=== PATIENT | female | born 1985 | race Caucasian/White ===

== ENCOUNTER 2017-10-22 06:02 | Inpatient (IN) ==
[2017-10-22] MEDS ORDERED: CeFAZolin Pre 2,000 MG/100 ML 2,000 MG/100 ML BAG IVPB ONE (06:07)
[2017-10-22] MEDS ORDERED: Naloxone 0.4 MG/ML INJ IVP PRN (06:07)
[2017-10-22] MEDS ORDERED: Metoclopramide 10 MG/2 ML VIAL IVP PRN ×2 (06:07→12:33)
[2017-10-22] MEDS ORDERED: Famotidine 20 MG/2 ML VIAL IVP PRN (06:07)
[2017-10-22] MEDS ORDERED: Ringers Solution, Lactated 1,000 ML IVC SCH (06:15)
--- NOTE | 2017-10-22 07:41 | History & Physical Report ---
Date of Encounter: 10/22/17 Time of Encounter: 07:40 24 Hour HP Update - Instructions Instructions: If the History and Physical is less than 30 days old and was completed prior to A.M. admission and or procedure and has NOT been updated on calendar day of procedure please complete this update prior to performing procedure. - Update Patient reports changes in Medical Condition: No Changes in examination, assessment, or condition: No Changes in Medication: No Preop tests/diagnostics Reviewed: Yes Surgery Remains Indicated: Yes Consent for Planned Operative Procedure(s) Verified: Yes - Pre-Operative Checklist Preoperative Checklist Indicated: Yes Prophylactic Antibiotic Ordered: Yes Home Medications Include Beta Saad: No Is VTE Prophylaxis Indicated?: Yes
[2017-10-22 08:02] LABS: Amphetamine Screen,Urine Negative ng/mL (Cutoff=1000); Barbiturate Screen,Urine Negative ng/mL (Cutoff=200); Benzodiazepines Screen,Urine Negative ng/mL (Cutoff=200); Cannabinoid Screen,Urine Negative ng/mL (Cutoff = 50); Cocaine Screen,Urine Negative ng/mL (Cutoff= 300); Opiate Screen,Urine Negative ng/mL (Cutoff=300); Phencyclidine Screen,Urine Negative ng/mL (Cutoff=25)
[2017-10-22 08:26] LABS: Hematocrit 31.9 % (35.3-44.9); Hemoglobin 10.7 g/dL (11.5-15.4); Mean Corpuscular HGB Conc 33.5 g/dL (31.6-35.5); Mean Corpuscular Volume 92.5 fL (83.0-100.0); Mean Platelet Volume 10.4 fL (9.4-12.4); Platelet Count 455 K/mcL (140-400); Red Blood Count 3.45 M/mcL (3.82-4.97); Red Cell Distribution Width 13.4 % (11.5-14.5)
[2017-10-22 08:28] LABS: Lymphocytes # 4.9 K/mcL (0.6-4.6); Monocytes # 0.8 K/mcL (0.0-1.3); Neutrophils # 7.9 K/mcL (1.6-8.9)
[2017-10-22 08:30] LABS: Polychromasia 1+ (Not Present)
--- NOTE | 2017-10-22 09:17 | Anesthesia Evaluation PreOp ---
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) Anesthesia History: No Prior Anesthetic Complications : Yes Test: Positive Alcohol Use: none Drug use: none Medications and Allergies 3 Allergy/AdvReac Type Severity Reaction Status Date / Time No Known Allergies Allergy Verified 10/22/17 07:02 - Meds/Allergy Pre-op Review Medications Reviewed: Yes Allergies Reviewed: Yes Beta Blockers on Current Med List: No Anesthesia Results - Labs 10/22/17 06:50 Anesthesia Exam - HEENT Pupil (Motor): Pupils equal Mallampati: II Teeth: Poor dentition Oral Opening: Greater than 3 - QM NURSE LOC: Oriented QM NURSE Motor: Normal RUE, Normal LUE, Normal RLE, Normal LLE, Normal Face QM NURSE Sensory: Normal: RUE, LUE, RLE, LLE, Face - Cardiac Rhythm: Regular Murmur: None JVD: No Carotid Bruit: No - Pulmonary Breath Sounds: bilateral Clear Respiratory Effort: Symmetrical Anesthesia Assess/Plan ASA Score: 2 Modified John Scale for Level of Consciousness: Cooperative, oriented, and tranquil Anesthetic Plan: Regional Autologous Blood: No Monitoring Plan: Standard Monitors Recovery Plan: PACU
--- NOTE | 2017-10-22 09:21 | Anesthesia Procedures ---
Date of Encounter: 10/22/17 Time of Encounter: 08:30 Procedures: Anesthesia - Epidural/Spinal Patient ID/Chart reviewed: Yes Patient examined: Yes OB Eval: Gestational age: 39 OB Eval: : 2 OB Eval: Hx Para: 1 OB Eval: Contractions: Non-stressed pattern Consent Obtained: Yes Supplemental Oxygen: None/Room Air Site Prep: Aseptic Technique, Sterile prep and drape, Povidone-Iodine 1% Patient position: upright Amount of Local Anesthetic used: 3 Interspace Used: L4-L5 Loss of Resistance (DOM): No Blood: No CSF: Yes Paresthesia: Yes Vitals + FHT's: stable throughout see nursing notes. bupivicaine 0.5% 2ml fentanyl 20 mcg, duramorph 0.3mg SAB
[2017-10-22] MEDS ORDERED: Ondansetron 4 MG/2 ML VIAL IVP ONE (09:23)
[2017-10-22] MEDS ORDERED: Ibuprofen 400 MG TABLET PO PRN (09:23)
[2017-10-22] MEDS ORDERED: *HR* HYDROcodone/Acet 5/325 mg TABLET PO PRN (09:23)
[2017-10-22] MEDS ORDERED: *HR* OxyCODONE/APAP 5/325 TABLET PO PRN (09:23)
[2017-10-22] MEDS ORDERED: Acetaminophen IV 1,000 MG/100 ML INFUS..BTL IVPB ONE (09:23)
[2017-10-22] MEDS ORDERED: *HR* Oxytocin 10 UNIT/ML VIAL IM ONE (09:42)
[2017-10-22] MEDS ORDERED: EPHEDrine 50 MG/ML VIAL ONE (09:42)
[2017-10-22] MEDS ORDERED: Ringers Solution, Lactated 1,000 ML ONE ×2 (09:42→15:50)
[2017-10-22] MEDS ORDERED: Lidocaine -MPF 1% 5 ML AMPUL ONE (09:42)
[2017-10-22] MEDS ORDERED: *HR* Phenylephrine 10 MG/ML VIAL ONE (09:42)
[2017-10-22] MEDS ORDERED: *HR* FentaNYL (PF) 100 MCG/2 ML VIAL ONE (09:42)
[2017-10-22] MEDS ORDERED: Morphine Sulfate/PF 5mg/10mL Vial ONE (09:42)
--- NOTE | 2017-10-22 09:57 | OB/GYN Procedure Note ---
Section - Date of procedure: 10/22/17 Preop diagnosis: desires repeat , desires sterilization Post-op diagnosis: same Procedure: repeat low transverse, bilateral tubal ligation Surgeon: Brie Joy Estimated blood loss (cc): 500 Was there an assistant district attorney present: No Anesthesiologist: Tatianna Rollins Senior Project Controls Specialist: Omaira Rodriguez Anesthesia Type: Spinal section complications: none Disposition: L&D Recovery Room Specimens: Placenta, Cord blood, Right tube segment, Left tube segment - (s) Infant A Infant Delivery Date: 10/22/17 Infant Delivery Time: 09:06 Presentation: vertex Position: KARINE Route of delivery: other Viability: Viable Pounds: 7 Ounces: 12 Gram Weight: 3515 kg at 1 minute: 8 at 5 minutes: 9 Placenta: complete extraction Cord: 3 umbilical vessels - Narrative Narrative: Patient was taken to the operating room and placed in supine position with left uterine displacement following the administration of spinal anesthetic. Skin was then prepped and draped in usual sterile fashion, and a timeout procedure was performed. A Pfannenstiel incision was performed through the previous surgical scar, and extended down to the fascial layer until the abdominal cavity was entered. A bladder flap was then gently created with sharp dissection. A low transverse uterine incision was performed and extended bilaterally with bandage scissors. The membranes were then ruptured with clear fluid present. A viable female infant was delivered from a vertex presentation with scores of 8 and 9 at 1 and 5 minutes respectively and the weighed 7 pounds and 12 ounces. The cord was clamped and cut, and the infant was handed to the nursery team. A sample of cord blood was obtained and the placenta was manually removed. The uterine cavity was wiped clean with wet lap sponge. The uterine incision was closed in a layered fashion with 0 Vicryl suture in a running locking fashion. Good hemostasis was noted.The patient and her were then asked if they still wanted to proceed with a tubal sterilization and they agreed. The left fallopian tube was first identified grasped and traced distally until the fimbriated end was seen and a distal portion tube was doubly ligated with 0 plain suture to incorporate the fimbriated end and the specimen was removed. Good hemostasis was noted and the procedure was repeated in a similar fashion for the right fallopian tube. Again good hemostasis was present. The Paracolic gutters were then gently wiped clean with wet lap sponge. Inspection was then performed with good hemostasis still noted. The fascial layer was closed with 0 PDS Stratafix suture in a running nonlocking fashion. The subcutaneous layer was irrigated with sterile water and then closed with 4-0 Vicryl suture in a running nonlocking fashion, and continuing to close the skin in a running subcuticular fashion. A piece of Dermabond mesh was then applied over the incision site. Patient tolerated procedure well, all sponge needle and instrument counts reported as correct. Estimated blood loss was 500 mL. The urine in the Rosales catheter was clear and yellow, and she was taken to recovery room in stable condition.
[2017-10-22] MEDS ORDERED: Measles/Mumps/Rubella Vacc 0.5 ML VIAL SQ ONE (12:33)
[2017-10-22] MEDS ORDERED: Oxytocin 20 units/ LR 1000 mL 20 UNIT/1,000 ML BAG IVC SCH (12:33)
[2017-10-22] MEDS ORDERED: Ondansetron 4 MG/2 ML VIAL IVP PRN (12:33)
[2017-10-22] MEDS ORDERED: Sennosides 8.6 MG TABLET PO PRN (12:33)
[2017-10-22] MEDS ORDERED: Simethicone 80 MG TAB.CHEW PO PRN (12:33)
[2017-10-22] MEDS: Ibuprofen 600 MG TABLET PO PRN ×2 (16:06→21:51)
[2017-10-22] MEDS: *HR* OxyCODONE/APAP 5/325 TABLET PO PRN (21:51)
[2017-10-23] MEDS: *HR* OxyCODONE/APAP 5/325 TABLET PO PRN ×4 (03:02→22:18)
[2017-10-23 04:52] LABS: Basophils % 0.2 %; Eosinophils # 0.1 K/mcL (0.0-0.6); Eosinophils % 0.5 %; Hematocrit 28.3 % (35.3-44.9); Hemoglobin 9.2 g/dL (11.5-15.4); Immature Granulocytes % 0.4 % (0-4); Lymphocytes % 23.3 %; Mean Corpuscular HGB Conc 32.5 g/dL (31.6-35.5); Mean Corpuscular Volume 92.2 fL (83.0-100.0); Mean Platelet Volume 9.6 fL (9.4-12.4); Monocytes # 1.1 K/mcL (0.0-1.3); Monocytes % 6.5 %; Neutrophils # 11.8 K/mcL (1.6-8.9); Platelet Count 410 K/mcL (140-400); Red Blood Count 3.07 M/mcL (3.82-4.97); Red Cell Distribution Width 13.2 % (11.5-14.5); Segmented Neutrophils % 69.1 %
[2017-10-23] MEDS: *HR* Enoxaparin 40 MG/0.4 ML SYRINGE SQ SCH (08:21)
[2017-10-23] MEDS: Prenatal Vit/FA 1 EACH TABLET PO SCH (08:22)
[2017-10-23] MEDS: Ibuprofen 600 MG TABLET PO PRN ×3 (08:22→22:19)
--- NOTE | 2017-10-23 10:36 | OB/GYN Progress Note ---
Date of Encounter: 10/23/17 Time of Encounter: 09:50 - Assessment and Plan (1) Status post repeat low transverse section Current Visit: Yes Status: Acute Continue routine care consult as needed Anticipate D/C to home tomorrow (2) anemia Current Visit: Yes Status: Acute Continue iron Subjective - Subjective Principal diagnosis: S/P RLTCS Interval history: Feeling well. Out of bed without dizziness. Cramping minimal, using ibuprofen. Bottlefeeding. Voiding without difficulty. Passing flatus, no BM yet. Tolerating regular diet. She is requesting to go home today but was informed that her has to stay for 3 days due to her opiate usage. She is agreeable to stay until tomorrow to be discharged. Patient reports: appetite normal, voiding normally, pain well controlled, ambulating normally [place]: doing well, bottle feeding Objective - Vital Signs Latest vital signs: Vital Signs Temp Pulse Resp BP Pulse Ox 10/23/17 09:46 16 10/23/17 08:10 98.4 F 98 12 117/76 97 10/23/17 03:44 98.2 F 76 18 112/73 96 10/22/17 23:14 97.8 F 76 20 99/63 98 10/22/17 20:05 98.1 F 84 14 103/64 98 10/22/17 16:00 16 10/22/17 14:20 98.0 F 78 16 103/67 97 10/22/17 13:22 98.0 F 69 16 130/69 10/22/17 13:20 16 10/22/17 12:45 16 10/22/17 12:15 97.5 F L 96 16 109/74 Intake and Output 10/22/17 10/23/17 10/23/17 23:59 07:59 15:59 Output Total 1300 / 1300 650 / 650 Balance -1300 / -1300 -650 / -650 Output: Urine 650 / 650 Catheter 1300 / 1300 Other: # Voids 1 Weight 71.078 kg Patient Weight 10/23/17 23:59 Weight 71.078 kg - Exam Lungs: bilateral: normal Chest: Normal S2 Extremities: Present: normal, edema Abdomen: Present: normal appearance, soft Incision: Present: normal, dry, dressed Uterus: Present: normal, firm Fundal Height: 2 (Below) Comments: Breasts: soft, nontender - Labs Labs: Laboratory Results - last 24 hr 10/23/17 04:17 WBC 17.0 H RBC 3.07 L Hgb 9.2 L D Hct 28.3 L MCV 92.2 MCH 30.0 MCHC 32.5 RDW 13.2 Plt Count 410 H MPV 9.6 Immature Gran % 0.4 Seg Neutrophils % 69.1 Lymphocytes % 23.3 Monocytes % 6.5 Eosinophils % 0.5 Basophils % 0.2 Neutrophils # 11.8 H Lymphocytes # 4.0 Monocytes # 1.1 Eosinophils # 0.1 Basophils # 0.0
[2017-10-24] MEDS: *HR* OxyCODONE/APAP 5/325 TABLET PO PRN ×4 (03:40→17:14)
[2017-10-24] MEDS: *HR* Enoxaparin 40 MG/0.4 ML SYRINGE SQ SCH (04:46)
[2017-10-24 08:16] VITALS: BP 129/83
[2017-10-24] MEDS: Prenatal Vit/FA 1 EACH TABLET PO SCH (08:54)
[2017-10-24] MEDS: Ibuprofen 600 MG TABLET PO PRN ×2 (08:54→17:14)
--- NOTE | 2017-10-24 17:15 | Discharge Summary ---
Date of Encounter: 10/24/17 Time of Encounter: 17:11 - Discharge Diagnosis (1) Status post repeat low transverse section Priority: Primary Status: Acute Comments: Pt states feeling well, tolerates regular diet, voiding without difficulty, passing flatus, desires discharge (2) anemia Priority: Secondary Status: Acute - Discharge Medications Prescriptions: OxyCODONE/APAP 5/325 [Percocet 5/325 MG] 1 each PO Q4HR PRN 5 Days #20 tablet PRN Reason: Moderate pain 4-6 Ibuprofen [Motrin] 600 mg PO Q6HR PRN #60 tablet PRN Reason: Cramping Docusate [Colace] 100 mg PO BID #60 capsule Ferrous Sulfate 325 mg PO BIDWM #60 tablet Home Medications: Docusate [Colace] 100 mg PO BID #60 capsule 10/24/17 [Rx] Enoxaparin [Lovenox] 40 mg SQ 0600 syringe 10/24/17 [Rx] Ferrous Sulfate 325 mg PO BIDWM #60 tablet 10/24/17 [Rx] Ibuprofen [Motrin] 600 mg PO Q6HR PRN #60 tablet 10/24/17 [Rx] OxyCODONE/APAP 5/325 [Percocet 5/325 MG] 1 each PO Q4HR PRN 5 Days #20 tablet [Rx] Vit/FA 1 each PO DAILY tablet 10/24/17 [Rx] Allergies/Adverse Reactions: 3 Allergy/AdvReac Type Severity Reaction Status Date / Time No Known Allergies Allergy Verified 10/22/17 07:02 Data Procedures and tests throughout hospitalization: Laboratory Tests 10/22/17 10/22/17 10/23/17 06:08 06:50 04:17 WBC 13.6 H 17.0 H RBC 3.45 L 3.07 L Hgb 10.7 L 9.2 L D Hct 31.9 L 28.3 L MCV 92.5 92.2 MCH 31.0 30.0 MCHC 33.5 32.5 RDW 13.4 13.2 Plt Count 455 H 410 H MPV 10.4 9.6 Immature Gran % 0.4 Seg Neutrophils % 56.0 69.1 Band Neutrophils % 2.0 Lymphocytes % 36.0 23.3 Monocytes % 6.0 6.5 Eosinophils % 0.5 Basophils % 0.2 Neutrophils # 7.9 11.8 H Lymphocytes # 4.9 H 4.0 Monocytes # 0.8 1.1 Eosinophils # 0.1 Basophils # 0.0 Platelet Estimate Slight increase H Polychromasia 1+ A Urine Opiates Screen Negative Ur Barbiturates Screen Negative Ur Phencyclidine Scrn Negative Ur Amphetamines Screen Negative U Benzodiazepines Scrn Negative Urine Cocaine Screen Negative U Marijuana (THC) Screen Negative Date of admission: 10/22/17 06:02 Primary care physician: Lisandro Hadley Discharging clinician: Alissa De La Cruz Anticipated date of discharge: 10/24/17 - Patient Status Disposition: Home, Self-Care Condition: Good Functional capacity at discharge: independent ambulation Overall status at discharge: patient is back to baseline - Discharge Instructions Instructions: Anemia (GEN) Follow Up With: Lisandro Hadley, DO [Primary Care Provider] - - Diet and Activity Activity: resume usual activities as tolerated Diet: regular diet Hospital Course Reason for admission: section, IUP at term Delivery: section Episiotomy: none Laceration: none Other procedures: tubal ligation complications: none Discharge diagnosis: IUP at term delivered baby: female Hospital course: Section - Date of procedure: 10/22/17 Preop diagnosis: desires repeat , desires sterilization Post-op diagnosis: same Procedure: repeat low transverse, bilateral tubal ligation Surgeon: Brie Joy Estimated blood loss (cc): 500 Was there an staffing assistant present: No Anesthesiologist: Tatianna Rollins Pulp Grinder And Blender: Omaira Rodriguez Anesthesia Type: Spinal section complications: none Disposition: L&D Recovery Room Specimens: Placenta, Cord blood, Right tube segment, Left tube segment - (s) A Infant Delivery Date: 10/22/17 Delivery Time: 09:06 Presentation: vertex Position: KARINE Route of delivery: other Viability: Viable Pounds: 7 Ounces: 12 Gram Weight: 3515 kg at 1 minute: 8 at 5 minutes: 9 Placenta: complete extraction Cord: 3 umbilical vessels Stable in PP and appropriate for discharge. OAARS reviewed. Time Attestation: Total time spent providing and/or coordinating discharge services: Time Spent: Less than 30 minutes - VTE Documentation of Mechanical Device: Intermittent pneumatic compression device Exam - Constitutional Vitals: Temp Pulse Resp BP Pulse Ox 97.8 F 86 14 129/83 97 10/24/17 08:15 10/24/17 08:15 10/24/17 08:15 10/24/17 08:15 10/23/17 20:30 General appearance IM: A&O X 3 - Respiratory Respiratory exam: Present: CTAB - Cardiovascular Cardiovascular exam IM: Present: RRR - GI/Abdominal GI/Abdominal exam IM: soft Incision: intact, dressed - Uterine Tone: Firm Uterus Position: At Umbilicus - Extremities Exam Extremities exam IM: Present: normal capillary refill, normal inspection - Neurological Exam Neurological exam: normal gait, oriented X3 - Psychiatric Additional comments: reports good mood
== END 2017-10-24 22:00 | disposition home or self-care (01) | DRG 540 ==
LOC: 1NENULAB 06:02 → 1NENUOBS 12:18